=== PATIENT | female | born 1975 | race Two or more races ===

== ENCOUNTER 2023-06-26 09:05 | Emergency (ER) | payer OTHER ==
[~2023-06-26] VITALS: Ht 167.6 cm; Wt 116.1 kg
[~2023-06-26 09:05] MED LIST: VASOTEC2.5 MG PO
[2023-06-26] MEDS ORDERED: ESCITALOPRAM OX10 MG (09:31)
[2023-06-26] MEDS ORDERED: CARDIZEM CD240 MG PO (09:31)
== END 2023-06-26 17:02 | disposition home or self-care (01) ==
LOC: ER 09:05
DX: S00.11XA Contusion of right eyelid and periocular area, initial encounter (principal); W19.XXXA Unspecified fall, initial encounter; Y93.89 Activity, other specified; Y92.89 Other specified places as the place of occurrence of the external cause; S12.490A Other displaced fracture of fifth cervical vertebra, initial encounter for closed fracture; S12.690A Other displaced fracture of seventh cervical vertebra, initial encounter for closed fracture; Z88.0 Allergy status to penicillin; Z88.6 Allergy status to analgesic agent; I10 Essential (primary) hypertension; S02.2XXA Fracture of nasal bones, initial encounter for closed fracture